=== PATIENT | female | born 2005 | race Caucasian/White ===

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

== ENCOUNTER 2023-08-29 14:19 | Emergency (ER) | payer OTHER, SELFPAY ==
--- NOTE | ~2023-08-29 | XR_ITS ---
EXAMINATION: XR chest 2V 08/29/2023 16:03 INDICATION: Cough and wheezing PROCEDURE: 2 view chest COMPARISON: No prior studies for comparison. FINDINGS: The lungs are clear. The cardiomediastinal silhouette is within normal limits. There are no pleural effusions. There is no pneumothorax suspected. IMPRESSION: 1: NO ACUTE CARDIOPULMONARY DISEASE. Reviewed, dictated and finalized at location B.
[2023-08-29 14:28] VITALS: BP 123/63; PULSE 78; RESP 16; TEMP 37.4; O2SAT 100
--- NOTE | 2023-08-29 15:38 | ED.URI ---
HPI - URI/Sore Throat General Chief Complaint: Upper Respiratory Infection Stated Complaint: Cough/Wheezing Time Seen by Provider: 08/29/23 15:31 Source: patient and RN notes reviewed Mode of arrival: ambulatory Limitations: no limitations History of Present Illness HPI Narrative: Patient presents today with a 1 month history, postnasal drip, nasal congestion. Reports intermittent wheezing. Denies history of asthma. She is a nonsmoker. She has had 2 telemedicine visits and 1 urgent care visit since onset of symptoms. The telemedicine visits diagnosed her with viral illnesses and prescribed her, ?mucus medicine in ?and an inhaler. At her urgent care visit at the beginning of July she was tested for strep, which was negative. She has tried no iior-pky-wnwijga medication for symptoms prior to arrival. Related Data Home Medications Medication Instructions Recorded Confirmed albuterol sulfate 90 mcg/actuation 2 puff inhalation Q6H PRN 08/29/23 08/29/23 aerosol inhaler Shortness Of Breath Or Wheezing Allergies Allergy/AdvReac Type Severity Reaction Status Date / Time Penicillins Allergy Unknown Rash Verified 08/29/23 14:44 Review of Systems Review of Systems: CONSTITUTIONAL: Denies body aches, fever, chills, or sweats. EYES: Denies visual changes, redness, or discharge. ENT: Denies rhinorrhea, sore throat, or otalgia.+ congestion, postnasal drip CARDIOVASCULAR: Denies chest pain, palpitations, or edema. RESPIRATORY: + cough, wheezing GASTROINTESTINAL: Denies abdominal pain, nausea, vomiting, or diarrhea. GENITOURINARY: Denies dysuria or hematuria. SKIN: Denies rash, itching, or wounds. MUSCULOSKELETAL: Denies back pain, joint pain, or myalgia. NEUROLOGIC: Denies headache, numbness, tingling, or weakness. PSYCH: Denies depression or anxiety. PMFSH Comments At time of signature, I have reviewed and agree with nursing past medical, surgical, social and family history unless otherwise noted. Please see nursing chart for further information. There is no relevant family history pertinent to the presenting complaint Exam Narrative: GENERAL: Well-appearing, well-nourished, and in no acute distress. HEAD: Normocephalic, atraumatic. EYES: EOMI. No redness or drainage. Conjunctivae normal. ENT: Mucous membranes pink and moist. Nares mildly congested. No rhinorrhea. TMs normal bilaterally. Throat normal. Uvula midline. NECK: Normal AROM. Supple. No lymphadenopathy. CHEST: No respiratory distress. Slight inspiratory wheezes in the bilateral upper lobes, otherwise clear HEART: Regular rate and rhythm. No murmur appreciated. Normal peripheral pulses. EXTREMITIES: Normal range of motion. No edema. SKIN: Warm, dry, no rash. Capillary refill normal. Normal skin turgor. NEURO: No focal deficits. Alert and oriented x3. Gait steady. PSYCH: Normal affect. No signs of depression or anxiety. Course Course Level of Care: Express Care Visit Vital Signs Vital signs: Vital Signs Temperature 99.4 F 08/29/23 14:28 Pulse Rate 78 08/29/23 14:28 Respiratory Rate 16 08/29/23 14:28 Blood Pressure 123/63 08/29/23 14:28 Pulse Oximetry 100 08/29/23 14:28 Oxygen Delivery Room Air 08/29/23 14:28 Temperature 99.4 F 08/29/23 14:28 Pulse Rate 78 08/29/23 14:28 Respiratory Rate 16 08/29/23 14:28 Blood Pressure 123/63 08/29/23 14:28 Pulse Oximetry 100 08/29/23 14:28 Oxygen Delivery Room Air 08/29/23 14:28 Reviewed MDM - URI/Sore Throat MDM Narrative Medical decision making narrative: Chest x-ray negative. Will place patient on doxycycline, prednisone, and an albuterol inhaler to treat her symptoms. No additional testing indicated at this time. Anticipatory guidance given. Differential Diagnosis Differential diagnosis: Likely bronchitis and other (Pneumonia) Imaging Data Radiologist's impression: ITS Impressions Chest X-Ray 08/29/23 16:06 IMPRESSION: 1: NO
== END 2023-08-29 16:25 | disposition home or self-care (01) ==
PROVIDERS: Emergency Provider Nurse Practitioner
DX: J40 Bronchitis, not specified as acute or chronic (principal); J01.90 Acute sinusitis, unspecified
CPT/HCPCS: 71046; 99213; G0463

== ENCOUNTER 2024-01-11 20:27 | Emergency (ER) | payer OTHER, SELFPAY ==
--- NOTE | ~2024-01-11 | CT_ITS ---
EXAMINATION: CT BRAIN W/O DATE: 01/11/2024 21:18 INDICATION: Head injury. Elbow to the for head. TECHNIQUE: Computed tomography (CT) of the head was performed without intravenous contrast. The dose- length product was 832.00 mGy-cm. COMPARISON: No prior studies for comparison. FINDINGS: Normal brain parenchymal volume for age. Normal hernández-white differentiation. No acute intrac ranial hemorrhage, infarction, mass or mass effect. No ventriculomegaly or midline shift. Midline sagittal images demonstrate a normal corpus callosum, c raniovertebral junction and sella turcica. Basilar cisterns are patent. Paranasal sinuses and mastoids are pneumatized. No depressed skull fractures. Mild right frontal scal p swelling. No underlying skull fracture. IMPRESSION: 1. No acute intracranial abnormality. Reviewed, dictated and finalized at location A.
--- NOTE | ~2024-01-11 | CT_ITS ---
EXAMINATION: CT cervical spine wo con DATE: 01/11/2024 21:19 INDICATION: Head injury. TECHNIQUE: Computed tomography (CT) of the cervical spine was performed without intravenous contrast. The dose-length product was 250 mGy-cm. Automated exposure control and iterative reconstruction tech [employer] were employed. COMPARISON: None FINDINGS: Normal cervical alignment. No fracture, subluxation or dislocation. No significant paraspin al soft tissue abnormality. Odontoid process is normal. IMPRESSION: 1. No acute abnormality of the cervical spine. Reviewed, dictated and finalized at location A.
[2024-01-11 20:28] VITALS: BP 139/72; PULSE 65; RESP 16; TEMP 36.4; O2SAT 100
--- NOTE | 2024-01-11 21:13 | ED.HEATRA ---
HPI - Head Injury General Chief complaint: Head Injury Stated complaint: head injury Time Seen by Provider: 01/11/24 20:36 Source: patient Mode of arrival: ambulatory Limitations: no limitations History of Present Illness HPI Narrative: Patient is a 18-year-old female who presents the ED with report of a head injury. Patient reports she was at [facility] today and performing a stunt when she was accidentally elbowed in her forehead by the flyer. She sustained a contusion to her right forehead. She fell backwards to the ground. Denied LOC. complains of pain to her forehead/head, mild nausea. Denies dizziness, lightheadedness, vomiting, vision changes, neck or back pain. Patient is on any blood thinners. Related Data Home Medications Medication Instructions Recorded Confirmed albuterol sulfate 90 mcg/actuation 2 puff inhalation Q6H PRN 08/29/23 08/29/23 aerosol inhaler Shortness Of Breath Or Wheezing Allergies Allergy/AdvReac Type Severity Reaction Status Date / Time Penicillins Allergy Unknown Rash Verified 01/11/24 21:22 Review of Systems Review of Systems: CONSTITUTIONAL: Denies fever, chills, or sweats. ENT: Denies vision changes GASTROINTESTINAL: See HPI MUSCULOSKELETAL: Denies back pain, neck pain. NEUROLOGIC: See HPI All systems reviewed & are unremarkable except as noted in HPI and below Exam Narrative: GENERAL: Well appearing, well-nourished, non-toxic, in no acute distress. HEAD: Normocephalic. Contusion/ecchymosis/hematoma/focal tenderness to R frontal region. No wounds or bleeding. EYES: PERRL/EOMI, conjunctiva clear. No nystagmus NECK: No midline spinal tenderness. RESPIRATORY: Airway patent, respirations nonlabored. Clear to auscultation bilaterally, no rales, rhonchi, wheezing. CARDIOVASCULAR: Regular rate and rhythm MUSCULOSKELETAL: Moves all extremities. No gross deformities. SKIN: Warm, dry, normal color. NEURO: A&O X3. Speech clear. Cranial nerves II-XII grossly intact. Steady gait. No ataxic movements. No focal deficits. PSYCHIATRIC: Appropriate mood and affect. Normal interaction. Course Vital Signs Vital signs: Vital Signs Temperature 97.6 F 01/11/24 20:28 Pulse Rate 65 01/11/24 20:28 Respiratory Rate 16 01/11/24 20:28 Blood Pressure 139/72 01/11/24 20:28 Pulse Oximetry 100 01/11/24 20:28 Oxygen Delivery Room Air 01/11/24 20:28 Temperature 97.6 F 01/11/24 20:28 Pulse Rate 65 01/11/24 20:28 Respiratory Rate 16 01/11/24 20:28 Blood Pressure 139/72 01/11/24 20:28 Pulse Oximetry 100 01/11/24 20:28 Oxygen Delivery Room Air 01/11/24 20:28 MDM - Head Injury MDM Narrative Medical decision making narrative: Patient presented to ED status post head injury, contusion to right forehead. No LOC. Patient neurologically intact. Vitals are stable. CT brain and cervical spine obtained and without traumatic findings. Patient updated on imaging results. Discussed possibility of concussion and management of such. Discharged home. Given return precautions. D/C in stable condition. Medical Records Attestation: I reviewed the patient's medical records. Imaging Data Attestation: I personally reviewed and interpreted this imaging study as follows: Radiologist's impression: ITS Impressions Head CT 01/11/24 21:24 IMPRESSION: 1. No acute intracranial abnormality. Cervical Spine CT 01/11/24 21:28 IMPRESSION: 1. No acute abnormality of the cervical spine. Discharge Plan Discharge Clinical Impression: Closed head injury Qualifiers: Encounter type: initial encounter Qualified Code(s): S09.90XA - Unspecified injury of head, initial encounter Hematoma of frontal scalp Qualifiers: Encounter type: initial encounter Qualified Code(s): S00.03XA - Contusion of scalp, initial encounter Patient Disposition: Home, Self-Care Condition: Stable Instructions: Antibiotic Form, Concussion (ED), Head Injury (ED)
[2024-01-11] MEDS: ACETAMINOPHEN 500 MG TABLET 1000 MG PO (21:38)
== END 2024-01-11 22:01 | disposition home or self-care (01) ==
PROVIDERS: Emergency Provider Physician Assistant
DX: S00.83XA Contusion of other part of head, initial encounter (principal); W51.XXXA Accidental striking against or bumped into by another person, initial encounter; Y93.45 Activity, cheerleading
CPT/HCPCS: 70450; 72125; 99284; A9270

== ENCOUNTER 2024-11-23 11:43 | Emergency (ER) | payer OTHER, SELFPAY ==
--- OUTSIDE RECORDS SUMMARY | 2024-11-23 11:46 | XMS_ITS | Clinical Summary ---
Author Organization [facility] Address [address] [place] [address] Care Team Providers Care All Source Intelligence Analyst Name Role Phone Unavailable Primary Care Provider Unavailabl e Source Comments [facility],non-owned Affiliates and Associated Physician Practices is amultiple site organization consisting of ambulatory clinics and hospital sitesin [place], [place], [place] and [place]. This disclosure is being madepursuant to the Care Everywhere program and may not contain all information available regarding this patient. Last updated 18.[facility] Allergies Active Allergy Reactions Criticality Noted Date Comments Penicillins Rash Medium 01/02/2019 Medications * Be aware that medications may not be up to date on this document. Alwaysverify current medications with the patient. Medication Sig Dispensed Refills Start Date End Date Status LO LOESTRIN FE tablet Take 1 tablet by mouth once daily 10/14/2020 Active tacrolimus (PROTOPIC) 0.1 % ointmentIndications :Unspecified contact dermatitis due to other agents Apply to affected area around eyes BID as needed for irritation around eyes. 30 day supply. 60 g 2 11/01/2020 Active Additional Information Patient not taking.Reported on 02/04/2021 tretinoin (RETIN-A) 0.05 % creamIndications:Ac ne vulgaris Pea sized amount to entire face at night. 30 days supply. 45 g 2 11/01/2020 Active Additional Information Patient not taking.Reported on 02/04/2021 doxycycline monohydrate 100 MG capsuleIndications: Perioral dermatitis,Acne vulgaris Take 1 (one) capsule by mouth 2 times daily 60 capsule 1 09/18/2022 Active Active Problems No known active problems Encounters Date Type Department Care Team Description 08/29/2024 Travel from Last 3 Months Immunizations Name Administration Dates Next Due INFLUENZA VACCINE 07/02/2020 Family History Medical History Relation Name Comments None Known Brother None Known Father None Known Maternal Aunt None Known Maternal Grandfather None Known Maternal Grandmother None Known Maternal Uncle None Known Mother None Known Other None Known Paternal Aunt None Known Paternal Grandfather None Known Paternal Grandmother None Known Paternal Uncle Eczema Sister Asthma Neg Hx CVA Neg Hx Cancer - Breast Neg Hx Cancer - Other Neg Hx Cancer - Skin, Melanoma Neg Hx Cancer - Skin, Non Melanoma Neg Hx Hemophilia Neg Hx Psoriasis Neg Hx Relation Name Status Comments Brother Father Maternal Aunt Maternal Grandfather Maternal Grandmother Maternal Uncle Mother Other Paternal Aunt Paternal Grandfather Paternal Grandmother Paternal Uncle Sister Social History Tobacco Use Types Packs/Day Years Used Date Smoking Tobacco: Never Smokeless Tobacco: Never Tobacco Cessation:Counseling Given: Yes Sex and Gender Information Value Date Recorded Sex Assigned at Not on file Gender Identity Not on file Sexual Orientation Not on file Last Filed Vital Signs Vital Sign Reading Time Taken Comments Blood Pressure 104/62 01/02/2019 10:59 AM LICENSED PHARMACIST Pulse 87 01/02/2019 10:59 AM LICENSED PHARMACIST Temperature 36.9 ??C (98.5 ??F) 01/02/2019 10:[address] Respiratory Rate - - Oxygen Saturation 98% 01/02/2019 10:59 AM LICENSED PHARMACIST Inhaled Oxygen Concentration - - Weight 60.3 kg (133 lb) 01/02/2019 10:59 AM LICENSED PHARMACIST Height 157.5 cm (5' 2 ) 01/02/2019 10:59 AM LICENSED PHARMACIST Body Mass Index 24.33 01/02/2019 10:59 AM LICENSED PHARMACIST Plan of Treatment Health Maintenance Due Date Last Done Comments PAP SMEAR 2003 HIV SCREENING 2018 HPV VACCINE (1 - 3-dose series) 2018 CHLAMYDIA/GONORRHEA SCREENING 2019 MENINGOCOCCAL (Group B) VACCINE (1 of 2 - Standard) 2019 HEPATITIS C SCREENING 10/28/2021 DTAP/TDAP/TD VACCINES (1 - Tdap) 2022 HEPATITIS B VACCINE (1 of 3 - 19+ 3-dose series) 2022 COVID-19 VACCINE (2023- season) 2024 INFLUENZA VACCINE (#1) 2024 0, 07/16/2017, 07/17/2016, Additional history exists DEPRESSION SCREENING 10/29/2024 ZOSTER VACCINE (1 of 2) 2053 HIB VACCINE Aged Out No longer eligi ble based on patient's age to complete this topic MENINGOCOCCAL VACCINE Aged Out No jayro lupillo eligible based on patient's age to complete this topic PNEUMOCOCCAL VACCINE Aged Out No long er eligible based on patient's age to complete this topic
--- OUTSIDE RECORDS SUMMARY | 2024-11-23 11:46 | XMS_ITS | Continuity of Care Document ---
Author Organization [facility] Address [address] [place] [address] Phone Care Team Providers Care Digital Music Instructor Name Role Phone Chapin Joe PA-C Unavailable Unavailable Allergies, Adverse Reactions, Alerts Substance Reaction Status Criticality Penicillins Active No Information Procedures Procedure Date RADEX KNE 3 VIEWS RADEX KNE 3 VIEWS OFFICE/OUTPATIENT VISIT NEW Advance Directives Directive Yes / No Effective Date File Name No Information Encounters Encounter Description Practice Location Reason(s) For Visit Diagnoses Date Provider Providers Copied on Encounter OFFICE/OUTPAT IENT VISIT NEW [facility] , [address], [place], [address], tel:[phone] [facility] Pain in left knee Heath Samson. [address], [place], [place], [id number]. tel:[phone] Family History Family Member Type Diagnosis Age At Onset Father Problem (finding) Alive and well Mother Problem (finding) Alive and well Payers Payer name Insurance type Covered green party ID Authoriza tion(s) No Information Social History Type Description Quantity Date Captured Comments Alcohol Use Details No Caffeine Use Details Unknown Tobacco Use Status Current non-smoker 17 Smoking Status Never smoker Non-Smoking Tobacco Use Details : No Details Available : No Details Available Sex Female Vital Signs Date / Time: Height Weight BMI Pulse Rate Blood Pressure Temperature Respiratory Rate Body Surface Area Head Circumference Head Circ. Percentile Wt./[place]. Percentile BMI percentile Pulse Ox Inhaled Ox 8:02 PM 62.00 in 58.967 kg (130.00 lbs) 23.7 8 kg/m eter (2) 118/68 mm[Hg] 83 Chief Complaint And Reason For Visit No Information Reason For Referral Reason For Referral No Information Plan Of Treatment Date Type Action Status Referral Ordered: RADEX KNE 3 VIEWS LT ordered History Of Present Illness Encounter Date Complaint History Of Prese nt Illness No Information Functional Status Date Functional Assessmen t No Information Instructions Date Instruction Additional Infor mation No Information Assessments Type Assessment Date assessment Pain in left knee Patient Care Teams Name Effective Dates (start - stop) Status Members No Information
--- OUTSIDE RECORDS SUMMARY | 2024-11-23 11:46 | XMS_ITS | Patient Health Summary ---
Author Organization [facility] Address [address] [place] [address] Care Team Providers Care Clamp Forklift Operator Name Role Phone Unavailable Primary Care Provider Unavailabl e Note from [facility],non-owned Affiliates and Associated Physician Practices is amultiple site organization consisting of ambulatory clinics and hospital sitesin [place], [place], [place] and [place]. This disclosure is being madepursuant to the Care Everywhere program and may not contain all information available regarding this patient. Last updated 18.[facility] Allergies * Penicillins(Rash) -Medium Criticality Medications * Be aware that medications may not be up to date on this document. Alwaysverify current medications with the patient. * LO LOESTRIN FE tablet(Started 10/14/2020) Take 1 tablet by mouth once daily * tacrolimus (PROTOPIC) 0.1 % ointment(Started 11/01/2020) Apply to affected area around eyes BID as needed for irritation around eyes. 30 day supply. 2 refills by 11/01/2021 * tretinoin (RETIN-A) 0.05 % cream(Started 11/01/2020) Pea sized amount to entire face at night. 30 days supply. 2 refills by 11/01/2021 * doxycycline monohydrate 100 MG capsule(Started 09/18/2022) Take 1 (one) capsule by mouth 2 times daily 1 refill by 09/18/2023 Active Problems No known active problems Immunizations * INFLUENZA VACCINE(Given 07/02/2020) Social History Tobacco Use Types Packs/Day Years Used Date Smoking Tobacco: Never Smokeless Tobacco: Never Tobacco Cessation:Counseling Given: Yes Sex and Gender Information Value Date Recorded Sex Assigned at Not on file Gender Identity Not on file Sexual Orientation Not on file Last Filed Vital Signs Vital Sign Reading Time Taken Comments Blood Pressure 104/62 01/02/2019 10:59 AM LAWYERS Pulse 87 01/02/2019 10:59 AM LAWYERS Temperature 36.9 ??C (98.5 ??F) 01/02/2019 10:[address] Respiratory Rate - - Oxygen Saturation 98% 01/02/2019 10:59 AM LAWYERS Inhaled Oxygen Concentration - - Weight 60.3 kg (133 lb) 01/02/2019 10:59 AM LAWYERS Height 157.5 cm (5' 2 ) 01/02/2019 10:59 AM LAWYERS Body Mass Index 24.33 01/02/2019 10:59 AM LAWYERS Procedures * STREP A SCREEN - POINT OF CARE (AMB) STL(Performed 01/02/2019) Performed for Acute streptococcal pharyngitis Results * (ABNORMAL) STREP A SCREEN (01/02/2019) Strep A Rapid POCT Positive(A) Negative Strep A Internal Control Present Lot # [id number] Expiration Date 07/28/2020 Throat ENTIRE THROAT (SURFACE REGION OF NECK) / Unknown 01/02/2019 Sonja Sanchez CIGAR PACKER AND GRADER-NURSING INFORMATION SYSTEMS COORDINATOR LAB - POINT OF CARE ORDERABLES
--- OUTSIDE RECORDS SUMMARY | 2024-11-23 11:46 | XMS_ITS | Continuity of Care Document ---
Author Organization [facility] Address [address] [place] [address] [address] [place] [address] Phone Care Team Providers Care Director Case Name Role Phone Gianfranco Mueller PT Unavailable Unavailable Procedures Procedure Date Progress Note Neuromuscular Re-Ed Therapeutic Activities Therapeutic Exercise Therapeutic Activities Manual Therapy Neuromuscular Re-Ed Therapeutic Exercise Therapeutic Exercise Therapeutic Activities Manual Therapy Neuromuscular Re-Ed Hot or Cold Pack Therapeutic Exercise Therapeutic Activities Manual Therapy Neuromuscular Re-Ed Therapeutic Activities Neuromuscular Re-Ed Manual Therapy Therapeutic Exercise Manual Therapy Neuromuscular Re-Ed Therapeutic Exercise Therapeutic Activities Therapeutic Activities Neuromuscular Re-Ed Manual Therapy Therapeutic Exercise Therapeutic Exercise Therapeutic Activities Neuromuscular Re-Ed Manual Therapy Therapeutic Activities Neuromuscular Re-Ed Manual Therapy Therapeutic Exercise Therapeutic Activities Therapeutic Exercise Neuromuscular Re-Ed PT Evaluation Low Complexity Therapeutic Activities Therapeutic Exercise Manual Therapy Advance Directives Directive Yes / No Effective Date File Name No Information Encounters Encounter Description Practice Location Reason(s) For Visit Diagnoses Date Provider Providers Copied on Encounter [facility] [address] [facility], [place], [place], [id number], tel:[phone] [place] No Information Mueller Gianfranco. . Referring Provider: Emi Harper, [address] [address], [place], [address]. tel:[phone] [facility], [place], [place], [id number], tel:[phone] [place] No Information Mueller Gianfranco. . Referring Provider: Emi Harper, [address] [address], [place], [address]. tel:[phone] [address], [place], [place], [id number], tel:[phone] [place] No Information Mueller Gianfranco. . Referring Provider: Emi Harper, 1 [facility] [address], [place], [address]. tel:[phone], [place], [place], [id number], [place] tel:[phone] [place] No Information Mueller Gianfranco. . Referring Provider: Emi Harper, 1 [facility] [address], [place], [address]. tel:[phone] [address], [place], [place], [id number], tel:[phone] [place] No Information Ervin Medel. . Referring Provider: Emi Harper, 1 [facility] [address], [place], [address]. tel:[phone] [facility], [address] [place], [place] [address], [place], [place], [id number], [phone] [place] No Information Muelleralicja Medel. . Referring Provider: Emi Harper, 1 [facility] [address], [place], [address]. [phone], [place], [place], [id number], [place] tel:[phone] [place] No Information Andres Baldwin. [address] [place] [address], [address], [place], [facility], . tel:[phone] Referring Provider: Emi Harper, 1 [facility] [address], [place], [address]. tel:[phone] [address], [place], [place], [id number], [place] tel:[phone] [place] No Information Andrse Baldwin. [address] [place] [address], [address], [place], [facility], . tel:[phone] Referring Provider: Emi Harper, 1 [facility] [address], [place], [address]. tel:[phone], [place], [place], [address], [place] tel:[phone] [place] No Information Andres Baldwin. [address] [place] [address], [address], [place], [facility], . tel:[phone] Referring Provider: Emi Harper, 1 [facility] [address], [place], [address]. tel:[phone], [place], [place], [id number], tel:[phone] [place] No Information Ervin Medel. . Referring Provider: Emi Harper, [address] [address], [place], [address]. tel:[phone] [facility], [address], [place], [place], [id number], tel:[phone] [place] No Information Lennox Hernández. . Referring Provider: Emi Harper, 1 [facility] [address], [place], [address]. tel:[phone] Family History Family Member Type Diagnosis Age At Onset No Information Payers Payer name Insurance type Covered constitution party ID Elizabeth jacobs(s) R CI [id number] Social History Type Description Quantity Date Captured Comments Sex Female Smoking Status No Information Chief Complaint And Reason For Visit No Information Reason For Referral Reason For Referral No Information History Of Present Illness Encounter Date Complaint History Of Prese nt Illness No Information Functional Status Date Functional Assessmen t No Information Instructions Date Instruction Additional Infor mation No Information Assessments Type Assessment Date No Information Patient Care Teams Name Effective Dates (start - stop) Status Members No Information
--- OUTSIDE RECORDS SUMMARY | 2024-11-23 11:46 | XMS_ITS | Clinical Summary ---
Author Organization [facility] Address [address] [place] [address] Care Team Providers Care Neurology Professor Name Role Phone No, Physician Primary Care Provider [phone] Allergies Active Allergy Reactions Criticality Noted Date Comments Penicillin Rash Medium 12/16/2019 Reaction: UNKNOWN, Medications tetracycline (ACHROMYCIN,SUMY MIAN) 250 mg capsule Take 500 mg by mouth 2 (two) times a day Active Lo Loestrin Fe 1 mg-10 mcg (24)/10 mcg (2) tablet per tablet Take one tablet orally same time everyday 84 tablet 3 3 Active Additional Information Patient not taking.Reported on 09/23/2024 albuterol HFA (PROVENTIL HFA,VENTOLIN HFA,PROAIR HFA) 90 mcg/actuation inhaler Inhale 2 puffs every 6 (six) hours as needed 3 Active benzonatate (TESSALON) 200 mg capsule Take 1 capsule (200 mg total) by mouth 2 (two) times a day as needed for cough 3 Active Mucus Relief ER 600 mg 12 hr tablet Take 1 tablet (600 mg total) by mouth every 12 (twelve) hours 3 Active doxycycline monohydrate (MONODOX) 100 mg capsule Take 1 capsule (100 mg total) by mouth 2 (two) times a day Active azelastine (ASTELIN) 137 mcg (0.1 %) nasal spray Administer 2 sprays into each nostril 2 (two) times a day 4 Active fluconazole (DIFLUCAN) 150 mg tablet Take one tablet and repeat in 3 days. 2 tablet 4 Active Active Problems No known active problems Encounters Date Type Department Care Team Description 10/02/2024 Telephone [facility] [address] [facility] [address] [place] [address] Mariah Price MA Vaginitis/Bacterial Vaginosis 09/23/2024 11:45 AM CHALK CUTTER Office Visit [facility]ient Care at [address] [address] Gage Machuca, JUAN CARLOS Strep pharyngitis (Primary Dx) from Last 3 Months Immunizations Name Administration Dates Next Due DTaP 05/10/2004,03/01/2004,01/05/2004 DTaP, Unspecified 01/05/2009 HPV, Quadrivalent 06/05/2016,06/04/2015 HPV9 06/05/2017 Hep A, Unspecified 09/15/2010,01/05/2009 Hep B, Adolescent or Pediatric 05/10/2004,2003,2003 HiB 02/21/2005, 4,03/01/2004,01/04 IPV 03/01/2004,01/05/2004 Influenza, Live, Intranasal, Quadrivalent 08/06/2015 Influenza, Quadrivalent, Spl it, Preservative Free, Intramuscular 07/16/2017,07/17/2016 Influenza, Unspecified 07/02/2020,07/06/2014 MMR 01/05/2009,2004 Meningococcal MCV4P (Menactra) 06/04/2015 Polio, Unspecified 01/05/2009,02/21/2005 Tdap 06/04/2015 Varicella 01/05/2009,2004 Surgical History Surgery Date Site/Laterality Comments ANTERIOR CRUCIATE LIGAMENT REPAIR 10/29/2017 - 8 Medical History Medical History Date Comments No pertinent past medical history Family History Medical History Relation Name Comments No Known Problems Father No Known Problems Mother Seizures Sister Family history of seizures - (Added by TW Conv) Relation Name Status Comments Father Alive Mother Alive Sister Social History Tobacco Use Types Packs/Day Years Used Date Smoking Tobacco: Never Smokeless Tobacco: Never PHQ-2 Answer Date Recorded PHQ-2 Total Score (If total score is 3 or more points, staff should administer the PHQ-9) 0 04/13/2022 Comments No Sex and Gender Information Value Date Recorded Sex Assigned at Not on file Legal Sex Female 1:14 PM CHALK CUTTER Gender Identity Not on file Sexual Orientation Not on file Obstetrics History Last Filed Vital Signs Vital Sign Reading Time Taken Comments Blood Pressure 133/78 09/23/2024 11:32 AM CHALK CUTTER Pulse 70 09/23/2024 11:32 AM CHALK CUTTER Temperature 37.2 ??C (98.9 ??F) 09/23/2024 1 1:32 AM CHALK CUTTER Respiratory Rate 20 09/23/2024 11:3 2 AM CHALK CUTTER Oxygen Saturation 99% 09/23/2024 11: 32 AM CHALK CUTTER Inhaled Oxygen Concentration - - Weight 64.3 kg (141 lb 11.2 oz) 024 11:32 AM CHALK CUTTER Height 160 cm (5' 3 ) 09/23/2024 11:32 AM CHALK CUTTER Body Mass Index 25.1 09/23/2024 11:32 AM CHALK CUTTER Plan of Treatment Health Maintenance Due Date Last Done Comments Cervical Cancer Screening 2003 Hepatitis C Screening 2003 Meningococcal B Vaccine (1 of 2 - Patient Seeks Protection) 2019 Regular Well Visit/Exam 18-64 2021 Depression Screening 04/13/2023 04/13/2022 Covid-19 Vaccine ( season) 2024 10/28/2021, 10/04/2021 Influenza Vaccine (#1) 2024 , 07/21/2020, 07/02/2020, Additional history exists DTaP/Tdap/Td Vaccine (6 - Td or Tdap) 06/04/2025 06/04/2015, 01/05/2009, 05/10/2004, Additional history exists Varicella Vaccines Completed 01/05/2009, 2004 HPV Vaccines Completed 06/05/2017, 0805/2016, 06/04/2015 Meningococcal Vaccine Completed 07/21/2020, 015 Pneumococcal vaccine <65 Aged Out No longer eligible based on patient's age to complete this topic Procedures Procedure Name Priority Date/Time Associated Diagnosis Comments POCT RAPID STREP Routine 09/23/2024 11:4 6 AM CHALK CUTTER Strep pharyngitis from Last 3 Months Results * (ABNORMAL) POCT rapid strep A (09/23/2024 11:46 AM CHALK CUTTER) Rapid Strep A, POC Positive(A ) Negative Swab 09/23/2024 11:4 6 AM CHALK CUTTER Gage Machuca NP POINT OF CARE TEST ORDERABLES F inal Result from Last 3 Months Insurance [facility] Care Teams Neurology Professor Relationship Specialty Start Date End Date No, Physician PCP - General 10/04/22
--- OUTSIDE RECORDS SUMMARY | 2024-11-23 11:46 | XMS_ITS | Referral Summary ---
Author Organization [facility] Address [address] [place] [address] Care Team Providers Care Liturgical Music Director Name Role Phone Unavailable Primary Care Provider Unavailabl e Source Comments [facility],non-owned Affiliates and Associated Physician Practices is amultiple site organization consisting of ambulatory clinics and hospital sitesin [place], [place], [place] and [place]. This disclosure is being madepursuant to the Care Everywhere program and may not contain all information available regarding this patient. Last updated 18.[facility] Encounters Date Type Department Care Team Description 08/29/2024 Travel from Last 3 Months Allergies Active Allergy Reactions Criticality Noted Date [...] Active Active Problems No known active problems Immunizations Name Administration Dates Next Due INFLUENZA VACCINE 07/02/2020 Social History Tobacco Use Types Packs/Day Years Used Date Smoking Tobacco: Never Smokeless Tobacco: Never Tobacco Cessation:Counseling Given: Yes Sex and Gender Information Value Date Recorded Sex Assigned at Not on file Gender Identity Not on file Sexual Orientation Not on file Last Filed Vital Signs Vital Sign Reading Time Taken Comments Blood Pressure 104/62 01/02/2019 10:59 AM ELECTROENCEPHALOGRAM TECHNOLOGIST Pulse 87 01/02/2019 10:59 AM ELECTROENCEPHALOGRAM TECHNOLOGIST Temperature 36.9 ??C (98.5 ??F) 01/02/2019 10:[address] Respiratory Rate - - Oxygen Saturation 98% 01/02/2019 10:59 AM ELECTROENCEPHALOGRAM TECHNOLOGIST Inhaled Oxygen Concentration - - Weight 60.3 kg (133 lb) 01/02/2019 10:59 AM ELECTROENCEPHALOGRAM TECHNOLOGIST Height 157.5 cm (5' 2 ) 01/02/2019 10:59 AM ELECTROENCEPHALOGRAM TECHNOLOGIST Body Mass Index 24.33 01/02/2019 10:59 AM ELECTROENCEPHALOGRAM TECHNOLOGIST Plan of Treatment Not on file
--- OUTSIDE RECORDS SUMMARY | 2024-11-23 11:46 | XMS_ITS | Referral Summary ---
Author Organization [facility] Address [address] [place] [address] Care Team Providers Care Uat Tester Name Role Phone No, Physician Primary Care Provider Encounters Date Type Department Care Team Description 10/02/2024 Telephone [facility] [address] [place] [address] [address], [place] [address] Mariah Price MA Vaginitis/Bacterial Vaginosis 09/23/2024 11:45 AM DIABETES TRAINER Office Visit [facility]ient Care at [address] [address] Gage Machuca NP Strep pharyngitis (Primary Dx) from Last 3 Months Allergies Active Allergy [...] problems Immunizations Name Administration Dates Next Due DTaP 05/10/2004,03/01/2004,01/05/2004 DTaP, Unspecified 01/05/2009 HPV, Quadrivalent 06/05/2016,06/04/2015 HPV9 06/05/2017 Hep A, Unspecified 09/15/2010,01/05/2009 Hep B, Adolescent or Pediatric 05/10/2004,2003,2003 HiB 02/21/2005, 4,03/01/2004,01/04 IPV 03/01/2004,01/05/2004 Influenza, Live, Intranasal, Quadrivalent 08/06/2015 Influenza, Quadrivalent, Spl it, Preservative Free, Intramuscular 07/16/2017,07/17/2016 Influenza, Unspecified 07/02/2020,07/06/2014 MMR 01/05/2009,2004 Meningococcal MCV4P (Menactra) 06/04/2015 Polio, Unspecified 01/05/2009,02/21/2005 Tdap 06/04/2015 Varicella 01/05/2009,2004 Social History Tobacco Use Types Packs/Day Years Used Date Smoking Tobacco: Never Smokeless Tobacco: Never PHQ-2 Answer Date Recorded PHQ-2 Total Score (If total score is 3 or more points, staff should administer the PHQ-9) 0 04/13/2022 Comments No Sex and Gender Information Value Date Recorded Sex Assigned at Not on file Legal Sex Female 1:14 PM DIABETES TRAINER Gender Identity Not on file Sexual Orientation Not on file Last Filed Vital Signs Vital Sign Reading Time Taken Comments Blood Pressure 133/78 09/23/2024 11:32 AM DIABETES TRAINER Pulse 70 09/23/2024 11:32 AM DIABETES TRAINER Temperature 37.2 ??C (98.9 ??F) 09/23/2024 1 1:32 AM DIABETES TRAINER Respiratory Rate 20 09/23/2024 11:3 2 AM DIABETES TRAINER Oxygen Saturation 99% 09/23/2024 11: 32 AM DIABETES TRAINER Inhaled Oxygen Concentration - - Weight 64.3 kg (141 lb 11.2 oz) 024 11:32 AM DIABETES TRAINER Height 160 cm (5' 3 ) 09/23/2024 11:32 AM DIABETES TRAINER Body Mass Index 25.1 09/23/2024 11:32 AM DIABETES TRAINER Plan of Treatment Not on file Procedures Procedure Name Priority Date/Time Associated Diagnosis Comments POCT RAPID STREP Routine 09/23/2024 11:4 6 AM DIABETES TRAINER Strep pharyngitis from Last 3 Months Results * (ABNORMAL) POCT rapid strep A (09/23/2024 11:46 AM DIABETES TRAINER) Rapid Strep A, POC Positive(A ) Negative Swab 09/23/2024 11:4 6 AM DIABETES TRAINER Gage Machuca NP POINT OF CARE TEST ORDERABLES F inal Result from Last 3 Months Insurance [facility] Member Subscriber Plan / Payer (Ef fective 2019-Present) Name:Alivia Rodríguez Relation to Subscriber:Other Relationship Name:QUINTON RODRÍGUEZ Date of :1982 Payer ID:[id number] (NAIC) Type:[facility] H[facility]/PPO Address: [address] [facility] Care Teams Uat Tester Relationship Specialty Start Date End Date No, Physician PCP - General 10/04/22
[2024-11-23 11:51] VITALS: BP 123/59; PULSE 67; RESP 16; TEMP 36.2; O2SAT 99
--- NOTE | 2024-11-23 12:50 | ED.GENADULT ---
HPI - General Adult General Chief complaint: Neck Pain/Injury Stated complaint: R upper back and neck pain Time Seen by Provider: 11/23/24 12:35 History of Present Illness HPI narrative: This is a 19-year-old female presenting ED with right shoulder and neck pain. She is a cheerleader. She injured her shoulder 2 months ago and has been having intermittent pain since then. He has started to feel better but then last night he was throwing a another cheerleader in the air when she developed worsening pain in her neck and shoulder. She now has pain in her neck and trap. It is worse with movement. It is slightly improved with Motrin. She has no weakness in her arm. No other injuries. Related Data Home Medications ?Medication ?Instructions ?Recorded ?Confirmed ?Last Taken ?Type albuterol sulfate 90 mcg/actuation 2 puff inhalation Q6H PRN 08/29/23 08/29/23 Unknown History aerosol inhaler Shortness Of Breath Or Wheezing Allergies Allergy/AdvReac Type Severity Reaction Status Date / Time Penicillins Allergy Unknown Rash Verified 11/23/24 12:40 Exam Narrative: APPEARANCE: No apparent distress. Head: atraumatic. EYES: EOMI, NOSE: Atraumatic NECK: Trachea midline no midline cervical tenderness RESPIRATORY: No increased rate of breathing CARDIOVASCULAR: RRR, ABDOMINAL: Non-distended MUSCULOSKELETAl: Tenderness over the right trap NEURO: Alert. Focal exam right upper extremity -motor and sensory function intact. Pulses intact. Cap refill less than 2 seconds. SKIN:: Warm, dry. Normal color PSYCHIATRIC: Normal affect Course Vital Signs Vital signs: Vital Signs Temperature 97.2 F L 11/23/24 11:51 Pulse Rate 67 11/23/24 11:51 Respiratory Rate 16 11/23/24 11:51 Blood Pressure 123/59 L 11/23/24 11:51 Pulse Oximetry 99 11/23/24 11:51 Temperature 97.2 F L 11/23/24 11:51 Pulse Rate 67 11/23/24 11:51 Respiratory Rate 16 11/23/24 11:51 Blood Pressure 123/59 L 11/23/24 11:51 Pulse Oximetry 99 11/23/24 11:51 Medical Decision Making [facility] Narrative Medical decision making narrative: -Course: 19-year-old she later presenting with shoulder and neck pain after throwing a person in the year. Patient has a muscle strain. Treated Motrin Tylenol Robaxin discharge. Vital Signs Vital Signs: Vital Signs Temperature 97.2 F L 11/23/24 11:51 Pulse Rate 67 11/23/24 11:51 Respiratory Rate 16 11/23/24 11:51 Blood Pressure 123/59 L 11/23/24 11:51 Pulse Oximetry 99 11/23/24 11:51 Temperature 97.2 F L 11/23/24 11:51 Pulse Rate 67 11/23/24 11:51 Respiratory Rate 16 11/23/24 11:51 Blood Pressure 123/59 L 11/23/24 11:51 Pulse Oximetry 99 11/23/24 11:51 Discharge Plan Discharge Clinical Impression: Strain of neck muscle Patient Disposition: Home, Self-Care Condition: Stable Instructions: Antibiotic Form, Cervical Strain (DC), Muscle Strain (DC) Additional Instructions: You seen in the emergency department for a muscle strain. Use Motrin and Tylenol and Robaxin as needed for pain. Please rest your muscles as he will continue to re-injure them if you continue to cheer. Gradually returned exercises her symptoms improved. If your symptoms do not improve please follow-up with your primary care physician as you may need a referral to Sports Medicine/orthopedics. Patient Language: [place] Island[place] Prescriptions: New ibuprofen 800 mg tablet 800 mg PO TID PRN (Reason: pain) 7 Days Qty: 21 0RF acetaminophen 500 mg tablet 1,000 mg PO TID PRN (Reason: mundo) 7 Days Qty: 42 0RF methocarbamol 750 mg tablet 1,500 mg PO TID Qty: 42 0RF No Action albuterol sulfate 90 mcg/actuation HFA aerosol inhaler 2 puff INHALATION Q6H PRN (Reason: Shortness Of Breath Or Wheezing) albuterol sulfate [ProAir HFA] 90 mcg/actuation HFA aerosol inhaler 2 puff INHALATION Q4-6H PRN (Reason: shortness of breath or wheezing) Qty: 18 0RF doxycycline hyclate 100 mg tablet 100 mg PO BID 7 Days Qty: 14 0RF prednisone 20 mg tablet 40 mg PO DAILY 5 Days Qty: 10 0RF (DME) BreatheRite MDI Spacer Spacer See Rx Instructions .ROUTE .MEDSUPPLY Qty: 1 0RF Rx Instructions: As directed Follow-up/Referrals: PHYSICIAN,POULTRY SCIENTIST [Primary Care Provider] -
--- OUTSIDE RECORDS SUMMARY | 2024-11-23 12:50 | XMS_ITS | Continuity of Care Document ---
Author Organization [facility] Address [address] [place] [address] Phone Care Team Providers Care Manager Building Name Role Phone Chapin Joe PA-C Unavailable [...] OFFICE/OUTPAT IENT VISIT NEW [facility] , [address], [place], [address], tel:[phone] [facility] Pain in left knee Heath Samson. [address], [place], [place], [address]. tel:[phone] Family History Family Member Type Diagnosis Age At Onset Father Problem (finding) Alive and well Mother Problem (finding) Alive and well Payers Payer name Insurance type Covered democrat ID Authoriza tion(s) No Information Social History [...]
--- OUTSIDE RECORDS SUMMARY | 2024-11-23 12:50 | XMS_ITS | Referral Summary ---
Author Organization [facility] Address [address] [place] [address] Care Team Providers Care Escrow Secretary Name Role Phone Unavailable Primary Care Provider Unavailabl e Source Comments [facility],non-owned Affiliates and Associated Physician Practices is amultiple site organization consisting of ambulatory clinics and hospital sitesin [place], [place], [place] and [place]. This disclosure is being madepursuant to the Care Everywhere program and may not contain all information available regarding this patient. Last updated 18.[facility] Encounters Date Type Department Care Team Description [...] Comments Blood Pressure 104/62 01/02/2019 10:59 AM NURSING ATTENDANT Pulse 87 01/02/2019 10:59 AM NURSING ATTENDANT Temperature 36.9 ??C (98.5 ??F) 01/02/2019 10:[address] Respiratory Rate - - Oxygen Saturation 98% 01/02/2019 10:59 AM NURSING ATTENDANT Inhaled Oxygen Concentration - - Weight 60.3 kg (133 lb) 01/02/2019 10:59 AM NURSING ATTENDANT Height 157.5 cm (5' 2 ) 01/02/2019 10:59 AM NURSING ATTENDANT Body Mass Index 24.33 01/02/2019 10:59 AM NURSING ATTENDANT Plan of Treatment Not on file
--- OUTSIDE RECORDS SUMMARY | 2024-11-23 12:50 | XMS_ITS | Continuity of Care Document ---
Author Organization [facility] [place] Address [address] [place] [address] [address] [place] [address] Phone Care Team Providers Care Nnp Name Role Phone Gianfranco Mueller PT Unavailable Unavailable Procedures Procedure Date Progress Note Therapeutic Exercise Therapeutic Activities Neuromuscular Re-Ed Therapeutic Activities Manual Therapy Neuromuscular Re-Ed Therapeutic Exercise Therapeutic Exercise Therapeutic Activities Manual Therapy Neuromuscular Re-Ed Hot or Cold Pack Neuromuscular Re-Ed Therapeutic Activities Manual Therapy Therapeutic Exercise Therapeutic Activities Neuromuscular Re-Ed Manual Therapy Therapeutic Exercise Therapeutic Activities Manual Therapy Neuromuscular Re-Ed Therapeutic Exercise Therapeutic Activities Neuromuscular Re-Ed Manual Therapy Therapeutic Exercise Therapeutic Activities Neuromuscular Re-Ed Therapeutic Exercise Manual Therapy Therapeutic Activities Neuromuscular Re-Ed Therapeutic Exercise Manual Therapy Therapeutic Activities Neuromuscular Re-Ed Therapeutic Exercise PT Evaluation Low Complexity Therapeutic Activities Therapeutic Exercise Manual Therapy Advance Directives Directive Yes / No Effective Date File Name No Information Encounters Encounter Description Practice Location Reason(s) For Visit Diagnoses Date Provider Providers Copied on Encounter [facility] [address] [facility], [place], [place], [id number], tel:[phone] [place] No Information Mueller Gianfranco. . Referring Provider: Emi Harper, [address] [address], [place], [address]. tel:[phone] [address], [place], [place], [address], tel:[phone] [place] No Information Mueller Gianfranco. . Referring Provider: Emi Harper, [address] [address], [place], [address]. tel:[phone] [address], [place], [place], [address], tel:[phone] [place] No Information Mueller Gianfranco. . Referring Provider: Emi Harper, 1 [facility] [address], [place], [address]. tel:[phone], [place], [place], [address], tel:[phone] [place] No Information Mueller Gianfranco. . Referring Provider: Emi Harper, 1 [facility] [address], [place], [address]. tel:[phone] [address], [place], [place], [id number], tel:[phone] [place] No Information Ervin Medel. . Referring Provider: Emi Harper, 1 [facility] [address], [place], [address]. tel:[phone] [facility], [address] [place], [place] [address], [place], [place], [id number], [phone] [place] No Information Muelleralicja Medel. . Referring Provider: Emi Harper, 1 [facility] [address], [place], [address]. [phone], [place], [place], [id number], [place] tel:[phone] [place] No Information Andres Baldwin. [address] [place] [address], [address], [place], [facility], . tel:[phone] Referring Provider: Emi Harper, 1 [facility] [address], [place], [address]. tel:[phone] [address], [place], [place], [id number], [place] tel:[phone] [place] No Information Andres Baldwin. [address] [place] [address], [address], [place], [facility], . tel:[phone] Referring Provider: Emi Harper, 1 [facility] [address], [place], [address]. tel:[phone], [place], [place], [id number], [place] tel:[phone] [place] No Information Andres Baldwin. [address] [place] [address], [address], [place], [facility], . tel:[phone] Referring Provider: Emi Harper, 1 [facility] [address], [place], [address]. tel:[phone], [place], [place], [id number], tel:[phone] [place] No Information Ervin Medel. . Referring Provider: Emi Harper, [address] [address], [place], [address]. tel:[phone] [facility], [address], [place], [place], [address], tel:[phone] [place] No Information Lennox Hernández. . Referring Provider: Emi Harper, 1 [facility] [address], [place], [address]. tel:[phone] Family History Family Member Type Diagnosis Age At Onset No Information Payers Payer name Insurance type Covered constitution party ID Elizabeth jacobs(s) R CI [id number] Social History Type Description Quantity Date Captured [...]
--- OUTSIDE RECORDS SUMMARY | 2024-11-23 12:50 | XMS_ITS | Clinical Summary ---
Author Organization [facility] Address [address] [place] [address] Care Team Providers Care Area Forester Name Role Phone Unavailable Primary Care Provider Unavailabl e Source Comments [facility],non-owned Affiliates and Associated Physician Practices is amultiple site organization consisting of ambulatory clinics and hospital sitesin [place], [place], [place] and [place]. This disclosure is being madepursuant to the Care Everywhere program and may not contain all information available regarding this patient. Last updated 18.[facility] Allergies Active Allergy Reactions Criticality Noted Date [...] Comments Blood Pressure 104/62 01/02/2019 10:59 AM RETAIL AND RESTAURANT ASSOCIATE Pulse 87 01/02/2019 10:59 AM RETAIL AND RESTAURANT ASSOCIATE Temperature 36.9 ??C (98.5 ??F) 01/02/2019 10:[address] Respiratory Rate - - Oxygen Saturation 98% 01/02/2019 10:59 AM RETAIL AND RESTAURANT ASSOCIATE Inhaled Oxygen Concentration - - Weight 60.3 kg (133 lb) 01/02/2019 10:59 AM RETAIL AND RESTAURANT ASSOCIATE Height 157.5 cm (5' 2 ) 01/02/2019 10:59 AM RETAIL AND RESTAURANT ASSOCIATE Body Mass Index 24.33 01/02/2019 10:59 AM RETAIL AND RESTAURANT ASSOCIATE Plan of Treatment Health Maintenance Due Date [...]
--- OUTSIDE RECORDS SUMMARY | 2024-11-23 12:50 | XMS_ITS | Patient Health Summary ---
Author Organization [facility] Address [address] [place] [address] Care Team Providers Care Tube Splicer Name Role Phone Unavailable Primary Care Provider Unavailabl e Note from [facility],non-owned Affiliates and Associated Physician Practices is amultiple site organization consisting of ambulatory clinics and hospital sitesin [place], [place], [place] and [place]. This disclosure is being madepursuant to the Care Everywhere program and may not contain all information available regarding this patient. Last updated 18.[facility] Allergies * Penicillins(Rash) -Medium Criticality Medications [...] Comments Blood Pressure 104/62 01/02/2019 10:59 AM JUMBO OPERATOR Pulse 87 01/02/2019 10:59 AM JUMBO OPERATOR Temperature 36.9 ??C (98.5 ??F) 01/02/2019 10:[address] Respiratory Rate - - Oxygen Saturation 98% 01/02/2019 10:59 AM JUMBO OPERATOR Inhaled Oxygen Concentration - - Weight 60.3 kg (133 lb) 01/02/2019 10:59 AM JUMBO OPERATOR Height 157.5 cm (5' 2 ) 01/02/2019 10:59 AM JUMBO OPERATOR Body Mass Index 24.33 01/02/2019 10:59 AM JUMBO OPERATOR Procedures * STREP A SCREEN - POINT OF CARE (AMB) STL(Performed 01/02/2019) Performed for Acute streptococcal pharyngitis Results * (ABNORMAL) STREP A SCREEN (01/02/2019) Strep A Rapid POCT Positive(A) Negative Strep A Internal Control Present Lot # [id number] Expiration Date 07/28/2020 Throat ENTIRE THROAT (SURFACE REGION OF NECK) / Unknown 01/02/2019 Sonja Sanchez COMMODITY SUPERVISOR-SENIOR INFORMATION SECURITY ARCHITECT LAB - POINT OF CARE ORDERABLES
--- OUTSIDE RECORDS SUMMARY | 2024-11-23 12:50 | XMS_ITS | Clinical Summary ---
Author Organization [facility] Address [address] [place] [address] Care Team Providers Care Vertical Punch Operator Name Role Phone No, Physician Primary Care Provider [phone] Allergies Active Allergy Reactions Criticality Noted Date [...] Type Department Care Team Description 10/02/2024 Telephone [facility] [address] [place] [address] Mariah Price MA Vaginitis/Bacterial Vaginosis 09/23/2024 11:45 AM SORORITY MOTHER Office Visit [facility] at [address] [address] Gage Machuca, JUAN CARLOS Strep [...] on file Legal Sex Female 1:14 PM SORORITY MOTHER Gender Identity Not on file Sexual Orientation Not on file Obstetrics History Last Filed Vital Signs Vital Sign Reading Time Taken Comments Blood Pressure 133/78 09/23/2024 11:32 AM SORORITY MOTHER Pulse 70 09/23/2024 11:32 AM SORORITY MOTHER Temperature 37.2 ??C (98.9 ??F) 09/23/2024 1 1:32 AM SORORITY MOTHER Respiratory Rate 20 09/23/2024 11:3 2 AM SORORITY MOTHER Oxygen Saturation 99% 09/23/2024 11: 32 AM SORORITY MOTHER Inhaled Oxygen Concentration - - Weight 64.3 kg (141 lb 11.2 oz) 024 11:32 AM SORORITY MOTHER Height 160 cm (5' 3 ) 09/23/2024 11:32 AM SORORITY MOTHER Body Mass Index 25.1 09/23/2024 11:32 AM SORORITY MOTHER Plan of Treatment Health Maintenance Due Date [...] RAPID STREP Routine 09/23/2024 11:4 6 AM SORORITY MOTHER Strep pharyngitis from Last 3 Months Results * (ABNORMAL) POCT rapid strep A (09/23/2024 11:46 AM SORORITY MOTHER) Rapid Strep A, POC Positive(A ) Negative Swab 09/23/2024 11:4 6 AM SORORITY MOTHER Gage Machuca NP POINT OF CARE TEST ORDERABLES F inal Result from Last 3 Months Insurance [facility] Care Teams Vertical Punch Operator Relationship Specialty Start Date End Date No, Physician PCP - General 10/04/22
--- OUTSIDE RECORDS SUMMARY | 2024-11-23 12:50 | XMS_ITS | Referral Summary ---
Author Organization [facility] Address [address] [place] [address] Care Team Providers Care Director Alumni Relations Name Role Phone No, Physician Primary Care Provider [phone] Encounters Date Type Department Care Team Description 10/02/2024 Telephone [id number] [place] [address] [address], [place] [address] Mariah Price MA Vaginitis/Bacterial Vaginosis 09/23/2024 11:45 AM PRESCHOOL PROGRAM DIRECTOR Office Visit [facility] at [address] [address] Gage Machuca NP Strep pharyngitis [...] on file Legal Sex Female 1:14 PM PRESCHOOL PROGRAM DIRECTOR Gender Identity Not on file Sexual Orientation Not on file Last Filed Vital Signs Vital Sign Reading Time Taken Comments Blood Pressure 133/78 09/23/2024 11:32 AM PRESCHOOL PROGRAM DIRECTOR Pulse 70 09/23/2024 11:32 AM PRESCHOOL PROGRAM DIRECTOR Temperature 37.2 ??C (98.9 ??F) 09/23/2024 1 1:32 AM PRESCHOOL PROGRAM DIRECTOR Respiratory Rate 20 09/23/2024 11:3 2 AM PRESCHOOL PROGRAM DIRECTOR Oxygen Saturation 99% 09/23/2024 11: 32 AM PRESCHOOL PROGRAM DIRECTOR Inhaled Oxygen Concentration - - Weight 64.3 kg (141 lb 11.2 oz) 024 11:32 AM PRESCHOOL PROGRAM DIRECTOR Height 160 cm (5' 3 ) 09/23/2024 11:32 AM PRESCHOOL PROGRAM DIRECTOR Body Mass Index 25.1 09/23/2024 11:32 AM PRESCHOOL PROGRAM DIRECTOR Plan of Treatment Not on file Procedures Procedure Name Priority Date/Time Associated Diagnosis Comments POCT RAPID STREP Routine 09/23/2024 11:4 6 AM PRESCHOOL PROGRAM DIRECTOR Strep pharyngitis from Last 3 Months Results * (ABNORMAL) POCT rapid strep A (09/23/2024 11:46 AM PRESCHOOL PROGRAM DIRECTOR) Rapid Strep A, POC Positive(A ) Negative Swab 09/23/2024 11:4 6 AM PRESCHOOL PROGRAM DIRECTOR Gage Machuca NP POINT OF CARE TEST ORDERABLES F inal Result from Last [address] [facility] Member Subscriber Plan / Payer (Ef fective 2019-Present) Name:Alivia Rodríguez Relation to Subscriber:Other Relationship Name:QUINTON RODRÍGUEZ Date of :1982 Payer ID:[id number] (NAIC) Type:[facility] HMO/PPO Address: [address] [facility] Care Teams Director Alumni Relations Relationship Specialty Start Date End Date No, Physician PCP - General 10/04/22
[2024-11-23] MEDS: ACETAMINOPHEN 500 MG TABLET 1000 MG PO (12:56)
[2024-11-23] MEDS: methocarbamoL 750 MG TABLET PO (12:57)
[2024-11-23] MEDS: IBUPROFEN 400 MG TABLET 800 MG PO (12:57)
== END 2024-11-23 13:27 | disposition home or self-care (01) ==
PROVIDERS: Emergency Provider Emergency Medicine
DX: S16.1XXA Strain of muscle, fascia and tendon at neck level, initial encounter (principal); Y93.45 Activity, cheerleading; X50.0XXA Overexertion from strenuous movement or load, initial encounter
CPT/HCPCS: 99283; A9270